=== PATIENT | male | born 1980 | race Caucasian/White ===

== ENCOUNTER 2020-07-29 10:36 | Emergency (ER) | payer OTHER ==
[~2020-07-29] VITALS: Ht 172.7 cm; Wt 81.6 kg
[2020-07-29] MEDS ORDERED: IBU400 MG PO ×2 (11:53→12:06)
[2020-07-29] MEDS ORDERED: MAXITROL EYE DRO5 ML OP (11:53)
[2020-07-29] MEDS ORDERED: TYLENOL325 MG (12:18)
== END 2020-07-29 12:35 | disposition home or self-care (01) ==
LOC: ER 10:36
DX: H15.122 Nodular episcleritis, left eye (principal)

== ENCOUNTER 2020-08-17 10:00 | Outpatient (CLI) | payer OTHER ==
[~2020-08-17 10:00] MED LIST: IBU400 MG PO; MAXITROL EYE DRO5 ML OP; TYLENOL325 MG
== END 2020-08-17 15:00 | disposition home or self-care (01) ==
LOC: PPH VACUNA 10:00
DX: Z23 Encounter for immunization (principal)